=== PATIENT | male | born 1950 | race Caucasian/White ===

== ENCOUNTER 2019-07-04 17:38 | Emergency (ER) | payer MEDICARE, SELFPAY ==
[2019-07-04 17:56] VITALS: BP 132/75; PULSE 86; RESP 16; TEMP 36.5; O2SAT 98
--- NOTE | 2019-07-04 18:01 | ED.GENADULT ---
HPI - General Adult General Chief complaint: Unspecified Stated complaint: Feels like something in throat History of Present Illness HPI narrative: This is a 68-year-old male comes in complaining swallowing a pill and did not feel like it went all the way down patient stated happened approximately about hour and a half ago denies any shortness of breath any choking just feels like something is in his throat. Patient states he has drank water, tea, and had a muffin and is still feels like is there. Related Data Home Medications Medication Instructions Recorded Confirmed [facility] Htn Medication 07/04/19 lisinopril 07/04/19 Allergies Allergy/AdvReac Type Severity Reaction Status Date / Time No Known Allergies Allergy Verified 07/04/19 18:01 Review of Systems Review of Systems: Narrative: CONSTITUTIONAL: Denies fever, chills, or sweats. EYES: Denies visual changes, redness, or discharge. ENT: Denies rhinorrhea, congestion, sore throat, or otalgia. CARDIOVASCULAR:Denies chest pain, palpitations, or edema. RESPIRATORY: Denies cough or dyspnea. GASTROINTESTINAL: Denies abdominal pain, nausea, vomiting, or diarrhea. GENITOURINARY: Denies dysuria or hematuria. SKIN:[Denies rash or itching. MUSCULOSKELETAL:Denies back pain, joint pain, or myalgia. NEUROLOGIC: Denies headache, numbness, or weakness. PSYCHIATRIC:Denies anxiety or depression PMFSH Comments At time as signature, I have reviewed and agree with nursing past medical, social, surgical and family history. Please see nursing chart for further information. There is no relevant family history pertinent to the presenting complaint. Exam Narrative: Exam Narrative: GENERAL:Well-appearing, well-nourished, and in no acute distress. HEAD:Normocephalic, atraumatic. EYES: PERRLA and EOMI. ENT: Nares clear, no rhinorrhea or epistaxis. Mucous membranes moist. NECK: Supple. CHEST: Clear to auscultation. No respiratory distress. HEART: Regular rate and rhythm. No murmur heard. Normal peripheral pulses. ABDOMEN: Soft, nontender, nondistended, normal active bowel sounds. EXTREMITIES: Normal range of motion. No edema. SKIN: Warm, dry, no rash. NEURO: No focal deficits. Alert and oriented x3. Patient was given a glass of water states that he feels better no choking, no gagging, no shortness of breath Course Vital Signs Vital signs: Vital Signs Temperature 97.7 F 07/04/19 17:56 Pulse Rate 86 07/04/19 17:56 Respiratory Rate 16 07/04/19 17:56 Blood Pressure 132/75 07/04/19 17:56 Pulse Oximetry 98 07/04/19 17:56 Temperature 97.7 F 07/04/19 17:56 Pulse Rate 86 07/04/19 17:56 Respiratory Rate 16 07/04/19 17:56 Blood Pressure 132/75 07/04/19 17:56 Pulse Oximetry 98 07/04/19 17:56 Medical Decision Making Vital Signs Vital Signs: Vital Signs Temperature 97.7 F 07/04/19 17:56 Pulse Rate 86 07/04/19 17:56 Respiratory Rate 16 07/04/19 17:56 Blood Pressure 132/75 07/04/19 17:56 Pulse Oximetry 98 07/04/19 17:56 Temperature 97.7 F 07/04/19 17:56 Pulse Rate 86 07/04/19 17:56 Respiratory Rate 16 07/04/19 17:56 Blood Pressure 132/75 07/04/19 17:56 Pulse Oximetry 98 07/04/19 17:56 Discharge Plan Discharge Clinical Impression: Physically well but worried Patient Disposition: Home, Self-Care Condition: Stable Instructions: Antibiotic Form, Foreign Body Ingestion (ED) Prescriptions: No Action Uknown Htn Medication RF: 0 lisinopril RF: 0 Follow-up/Referrals: Shelbi,MD Diane [Primary Care Provider] - Time of Disposition: 18:15 Discharge Date/Time: 07/04/19 18:20
--- NOTE | 2019-07-04 18:05 | PC.NURSE ---
1800 pt given a glass of water
== END 2019-07-04 18:20 | disposition home or self-care (01) ==
PROVIDERS: Emergency Provider Nurse Practitioner Family; PCP Internal Medicine
DX: Z71.1 Person with feared health complaint in whom no diagnosis is made (principal); I10 Essential (primary) hypertension
CPT/HCPCS: 99201; G0463